=== PATIENT | female | born 1965 ===

== ENCOUNTER 2018-10-08 11:38 | Outpatient (CLI) | payer OTHER ==
[~2018-10-08] VITALS: Ht 170.2 cm; Wt 160.6 kg
== END 2018-10-08 12:00 | disposition home or self-care (01) ==
LOC: OFIC 805 11:38
DX: H91.8X1 Other specified hearing loss, right ear (principal); H60.8X1 Other otitis externa, right ear; H61.21 Impacted cerumen, right ear

== ENCOUNTER 2018-10-08 14:35 | Outpatient (CLI) | payer OTHER | END 2018-10-08 15:34 | disposition home or self-care (01) | LOC: LAB 14:35 | DX: H61.391 Other acquired stenosis of right external ear canal (principal) ==

== ENCOUNTER 2018-10-11 12:28 | Outpatient (CLI) | payer OTHER ==
[~2018-10-11] VITALS: Ht 152.4 cm; Wt 159.2 kg
== END 2018-10-11 12:40 | disposition home or self-care (01) ==
LOC: OFIC 805 12:28
DX: H91.8X1 Other specified hearing loss, right ear (principal); H60.8X1 Other otitis externa, right ear; H61.21 Impacted cerumen, right ear

== ENCOUNTER 2019-04-04 13:49 | Outpatient (CLI) | payer OTHER ==
[~2019-04-04] VITALS: Ht 152.4 cm; Wt 160.6 kg
== END 2019-04-04 14:10 | disposition home or self-care (01) ==
LOC: OFIC 805 13:49
DX: H61.21 Impacted cerumen, right ear (principal); H60.8X1 Other otitis externa, right ear; H91.8X1 Other specified hearing loss, right ear

== ENCOUNTER 2019-04-04 14:30 | Outpatient (CLI) | payer OTHER | END 2019-04-04 14:45 | disposition home or self-care (01) | LOC: LAB 14:30 | DX: H61.91 Disorder of right external ear, unspecified (principal) ==

== ENCOUNTER 2019-04-11 14:05 | Outpatient (CLI) | payer OTHER ==
[~2019-04-11] VITALS: Ht 152.4 cm; Wt 160.6 kg
== END 2019-04-11 14:20 | disposition home or self-care (01) ==
LOC: OFIC 805 14:05
DX: H60.8X1 Other otitis externa, right ear (principal); H61.21 Impacted cerumen, right ear; H91.8X1 Other specified hearing loss, right ear

== ENCOUNTER 2020-12-16 13:43 | Outpatient (CLI) | payer OTHER | END 2020-12-16 14:38 | disposition home or self-care (01) | LOC: OFIC 805 13:43 | PROVIDERS: ATTEND Otolaryngology | DX: H60.8X2 Other otitis externa, left ear (principal); H61.22 Impacted cerumen, left ear ==

== ENCOUNTER 2020-12-22 14:25 | Outpatient (CLI) | payer OTHER | END 2020-12-22 16:54 | disposition home or self-care (01) | LOC: OFIC 805 14:25 | PROVIDERS: ATTEND Otolaryngology | DX: H60.8X2 Other otitis externa, left ear (principal); H61.22 Impacted cerumen, left ear ==